=== PATIENT | male | born 1980 | race Two or more races ===

== ENCOUNTER 2016-11-19 14:46 | Emergency (ER) | payer SELFPAY ==
[~2016-11-19] VITALS: Ht 185.4 cm; Wt 72.6 kg
[2016-11-19] MEDS ORDERED: IV NS 0.9% 1,000 ML ONE (15:16)
[2016-11-19] MEDS ORDERED: MORPHINE SULFATE INJ 4 MG/ML DISP.SYRIN ONE (15:16)
[2016-11-19] MEDS ORDERED: IV SET PRIMARY 1 EA INFUS.SET MC ONE (15:16)
[2016-11-19] MEDS ORDERED: ONDANSETRON HCL/PF 4 MG/2 ML VIAL ONE (15:16)
--- NOTE | 2016-11-19 15:25 | NUR ---
NEW IV STARTED ON RAC, 18 G.
[2016-11-19] MEDS ORDERED: ONDANSETRON HCL/PF - ER 4 MG/2 ML VIAL IV ONE (15:30)
[2016-11-19] MEDS ORDERED: MORPHINE SULFATE INJ 2 MG/ML DISP.SYRIN IV ONE (15:30)
[2016-11-19] MEDS ORDERED: IV NS 0.9% 1,000 ML BAG IV ONE (15:30)
--- NOTE | 2016-11-19 15:30 | NUR ---
PATIENT MEDICATED PER MD ORDERS.
--- NOTE | 2016-11-19 15:35 | NUR ---
US TECH AT BEDSIDE.
--- NOTE | 2016-11-19 16:50 | NUR ---
URINE OBTAINED AND SENT TO LAB.
[2016-11-19 17:46] LABS: APPEARANCE,URINE SL CLOUDY (CLEAR); BILIRUBIN,URINE NEGATIVE (NEGATIVE); BLOOD, URINE NEGATIVE Ery/uL (NEGATIVE); COLOR,URINE YELLOW (YELLOW); KETONES,URINE NEGATIVE (NEGATIVE); LEUKOCYTE ESTERASE ,URINE NEGATIVE (NEGATIVE); NITRITE, URINE NEGATIVE (NEGATIVE); PROTEIN,URINE NEGATIVE (NEGATIVE); UGLUCOSE NEGATIVE (NEGATIVE); UROBILINOGEN,URINE 0.2 EU/dL (0.2)
[2016-11-19] MEDS ORDERED: HYDROCODONE/APAP 10/325MG 1 EA TABLET ONE (18:19)
[2016-11-19] MEDS ORDERED: CIPROFLOXACIN HCL 500 MG TABLET ONE (18:19)
[2016-11-19 18:20] VITALS: BP 112/72
[2016-11-19] MEDS ORDERED: CIPROFLOXACIN HCL 500 MG TABLET PO ONE (18:30)
[2016-11-19] MEDS ORDERED: HYDROCODONE/APAP 10/325MG 1 EA TABLET PO ONE (18:30)
== END 2016-11-19 18:26 | disposition home or self-care (01) ==
LOC: ER 14:49
DX: N45.1 Epididymitis (principal); E86.0 Dehydration
CPT/HCPCS: 76870; 81001; 96361; 96374; 96375; 99285; A4606; J2270; J2405; J7030; Z7610; 81000-TC

== ENCOUNTER 2021-07-03 15:05 | Emergency (ER) | payer SELFPAY ==
[~2021-07-03] VITALS: Ht 182.9 cm; Wt 81.6 kg
[2021-07-03 15:14] VITALS: BP 139/95
--- NOTE | 2021-07-03 15:14 | NUR ---
BIBS C/O LEFT FOREARM BLISTER AND PAIN S/P INSECT BITE LAST NIGHT
--- NOTE | 2021-07-03 15:27 | NUR ---
Patient discharged to home in stable condition. Written and verbal after care instructions given. Patient verbalizes understanding of instruction.
== END 2021-07-03 15:35 | disposition home or self-care (01) ==
LOC: ER 15:05
DX: S50.862A Insect bite (nonvenomous) of left forearm, initial encounter (principal); W57.XXXA Bitten or stung by nonvenomous insect and other nonvenomous arthropods, initial encounter; Y93.89 Activity, other specified; Y92.89 Other specified places as the place of occurrence of the external cause; Y99.8 Other external cause status

== ENCOUNTER 2023-04-02 23:05 | Emergency (ER) | payer MEDICAID ==
[~2023-04-02] VITALS: Ht 185.4 cm; Wt 81.6 kg
[2023-04-03] MEDS ORDERED: IV NS 0.9% 1,000 ML IV ONE
[2023-04-03 00:43] LABS: BASOPHILS % (AUTO) 0.4 % (0.0-2.0); EOSINOPHILS # (AUTO) 0.1 K/uL (0.0-0.7); EOSINOPHILS % (AUTO) 1.9 % (0.0-6.0); HEMATOCRIT 42 % (39-51); HEMOGLOBIN 13.9 g/dL (13.5-17.5); LYMPHOCYTES # (AUTO) 1.7 K/uL (0.8-4.8); LYMPHOCYTES % (AUTO) 24.6 % (20.0-44.0); MEAN CORPUSCULAR HEMOGLOBIN 28 PG (26.0-33.0); MEAN CORPUSCULAR HGB CONC 33 g/dl (31.0-36.0); MEAN CORPUSCULAR VOLUME 83 fL (80-96); MONOCYTES # (AUTO) 0.4 K/uL (0.1-1.30); MONOCYTES % (AUTO) 5.2 % (2.0-12.0); NEUTROPHILS # (AUTO) 4.8 K/uL (1.8-8.9); NEUTROPHILS % (AUTO) 67.9 % (43.0-81.0); PLATELET COUNT (AUTO) 265 K/uL (150-450); RED BLOOD CELL COUNT(AUTO) 4.99 MIL/uL (4.5-6.0); RED CELL DISTRIBUTION WIDTH 14.2 % (11.5-15.0); WHITE BLOOD COUNT (AUTO) 7.1 K/uL (4.3-11.0)
[2023-04-03 01:05] LABS: CALCIUM, SERUM 9.7 mg/dL (8.5-10.1); CREATININE 0.9 mg/dL (0.6-1.3); MAGNESIUM 2.3 mg/dL (1.8-2.4); POTASSIUM 4.3 mmol/L (3.5-5.1)
[2023-04-03] MEDS ORDERED: MAG HYDROX/AL HYDROX/SIMETH 30 ML UDC ONE (01:36)
[2023-04-03] MEDS ORDERED: MAG HYDROX/AL HYDROX/SIMETH 30 ML UDC PO ONE (02:00)
[2023-04-03 02:28] VITALS: BP 132/88; TEMP 98; O2SAT 99
== END 2023-04-03 02:29 | disposition home or self-care (01) ==
LOC: ER 23:09
DX: E86.0 Dehydration (principal); F11.23 Opioid dependence with withdrawal; F17.200 Nicotine dependence, unspecified, uncomplicated; R53.83 Other fatigue; Z20.822 Contact with and (suspected) exposure to COVID-19
CPT/HCPCS: 99284; 71045; 87426; 87804 ×2; 85025; 80048; 83735; 36415; 96360; C9803; J7030

== ENCOUNTER 2024-01-20 13:36 | Emergency (ER) | payer SELFPAY ==
[~2024-01-20] VITALS: Ht 182.9 cm; Wt 77.1 kg
[2024-01-20 13:47] VITALS: BP 129/82; TEMP 98.3; O2SAT 99
[2024-01-20] MEDS ORDERED: KETOROLAC TROMETHAMINE 15 MG/ML VIAL ONE (14:11)
[2024-01-20] MEDS: IV NS 0.9% 1,000 ML BAG IV ONE (14:17)
[2024-01-20] MEDS: KETOROLAC TROMETHAMINE 15 MG/ML VIAL IV ONE (14:18)
== END 2024-01-20 14:20 | disposition left against medical advice (07) ==
LOC: ER 13:36
DX: G43.909 Migraine, unspecified, not intractable, without status migrainosus (principal); R07.2 Precordial pain; R11.2 Nausea with vomiting, unspecified; H53.149 Visual discomfort, unspecified
CPT/HCPCS: J1885